=== PATIENT | male | born 1985 | race Hispanic/Latino ===

== ENCOUNTER 2021-06-12 10:06 | Emergency (ER) | payer SELFPAY ==
[~2021-06-12] VITALS: Ht 172.7 cm; Wt 95.3 kg
[2021-06-12 10:11] VITALS: BP 132/74
[2021-06-12] MEDS ORDERED: ACETAMINOPHEN 500 MG TABLET PO ONE (12:00)
[2021-06-12] MEDS ORDERED: 0.9%NACL 1000ML 1,000 ML IV ONE (12:00)
[2021-06-12 12:42] LABS: ABG BASE EXCESS 0.4 mmol/L (-2.0-3.0); ABG HCO3 19.6 mmol/L (21.0-28.0); ABG OXYGEN SATURATION 96.9 % (95.0-99.0); ABG PCO2 21 mmHg (35-48)
[2021-06-12 12:44] LABS: BASOPHILS % (AUTO) 0.3 % (0.0-5.0); EOSINOPHILS % (AUTO) 0.6 % (0.0-8.0); HEMATOCRIT 42.7 % (42-54); LYMPHOCYTES % (AUTO) 15.7 % (21.0-51.0); MEAN CORPUSCULAR HEMOGLOBIN 30.1 pg (27.0-33.0); MEAN CORPUSCULAR HGB CONC 35.4 g/dL (32.0-36.0); MEAN CORPUSCULAR VOLUME 85.2 fL (79-99); MONOCYTES % (AUTO) 4.3 % (3.0-13.0); NEUTROPHILS % (AUTO) 78.6 % (40.0-77.0); PLATELET COUNT (AUTO) 249 K/uL (130-400); RED BLOOD CELL COUNT(AUTO) 5.01 MIL/uL (4.50-6.20); RED CELL DISTRIBUTION WIDTH 12.1 % (11.0-15.5); WHITE BLOOD COUNT (AUTO) 11.1 K/uL (4.8-10.8)
[2021-06-12 12:57] VITALS: BP 126/72
[2021-06-12] MEDS ORDERED: ALBUTEROL INHALER 90MCG/INH IH PRN (13:00)
[2021-06-12 13:02] LABS: POTASSIUM 3.5 mmol/L (3.5-5.1)
[2021-06-12 13:06] LABS: ALBUMIN 3.2 g/dL (3.5-5.0); BILIRUBIN,TOTAL 0.6 mg/dL (0.2-1.0); TOTAL PROTEIN, SERUM 8.4 g/dL (6.0-8.3)
[2021-06-12 13:19] LABS: B-TYPE NATRIURETIC PEPTIDE 7 pg/mL (0-100)
[2021-06-12 13:20] LABS: CRP QUANTITATIVE 190.2 mg/L (0.00-9.0)
[2021-06-12] MEDS ORDERED: ALBUHFA IH (13:26)
[2021-06-12] MEDS ORDERED: ACET-2247 PO (13:26)
[2021-06-12] MEDS ORDERED: FLUT1DIS IH (13:26)
== END 2021-06-12 13:44 | disposition home or self-care (01) ==
LOC: EDH 10:06
DX: U07.1 COVID-19 (principal); J98.8 Other specified respiratory disorders; F41.9 Anxiety disorder, unspecified; Z79.51 Long term (current) use of inhaled steroids; Z79.899 Other long term (current) drug therapy
CPT/HCPCS: 36415; 36600; 71045; 80053; 82803; 83880; 84484; 85025; 85378; 86140; 87040 ×2; 87635; 87804 ×2; 93005; 96360; 99285; C9803; J7030

== ENCOUNTER 2024-02-11 21:46 | Emergency (ER) | payer BC, OTHER ==
[~2024-02-11 21:46] MED LIST: ACET-2247 PO; ALBUHFA IH; FLUT1DIS IH
[2024-02-11] MEDS: 0.9%NACL 1000ML 1,000 ML IV ONE (23:22)
[2024-02-11] MEDS: FAMOTIDINE 20MG VIAL IV ONE (23:23)
[2024-02-11] MEDS: DIAZEPAM 5 MG/ML 2 ML SYG IVP ONE (23:26)
[2024-02-11] MEDS: KETOROLAC 30MG VIAL (30MG/ML) IVP ONE (23:26)
[2024-02-11 23:32] LABS: BASOPHILS # (AUTO) 0.05 K/uL (0.00-0.20); BASOPHILS % (AUTO) 0.4 % (0.0-5.0); EOSINOPHILS % (AUTO) 5.1 % (0.0-8.0); HEMATOCRIT 41.4 % (42-54); IMMATURE GRANULOCYTE ABSOLUTE 0.07 K/uL (0-1); LYMPHOCYTES # (AUTO) 2.7 K/uL (1.0-4.8); LYMPHOCYTES % (AUTO) 22.9 % (21.0-51.0); MEAN CORPUSCULAR HEMOGLOBIN 30.6 pg (27.0-33.0); MEAN CORPUSCULAR HGB CONC 34.8 g/dL (32.0-36.0); MEAN CORPUSCULAR VOLUME 88.1 fL (79-99); MONOCYTES # (AUTO) 1.3 K/uL (0.1-1.0); MONOCYTES % (AUTO) 11.1 % (3.0-13.0); NEUTROPHILS # (AUTO) 7.1 K/uL (1.8-7.7); NEUTROPHILS % (AUTO) 59.9 % (40.0-77.0); PLATELET COUNT (AUTO) 382 K/uL (130-400); RED CELL DISTRIBUTION WIDTH 12.2 % (11.0-15.5); WHITE BLOOD COUNT (AUTO) 11.9 K/uL (4.8-10.8)
[2024-02-11 23:55] LABS: POTASSIUM 3.1 mmol/L (3.5-5.1)
[2024-02-11 23:59] LABS: ALBUMIN 3.1 g/dL (3.5-5.0); BILIRUBIN,TOTAL 1.5 mg/dL (0.2-1.0); TOTAL PROTEIN, SERUM 8.2 g/dL (6.0-8.3)
[2024-02-12] MEDS: POTASSIUM BICARB/CIT AC 25 MEQ TABLET.EFF PO ONE (00:45)
[2024-02-12 00:55] LABS: MAGNESIUM 1.7 mg/dL (1.80-2.40); THYROID STIMULATING HORMONE 2.44 uIU/mL (0.36-3.74)
[2024-02-12 01:13] VITALS: BP 137/87; PULSE 80; RESP 16; O2SAT 95
[2024-02-12] MEDS ORDERED: CYCL10TA16 PO (01:17)
[2024-02-12] MEDS ORDERED: MELO-106 PO (01:17)
[2024-02-12] MEDS: MORPHINE 2 MG SYG IVP ONE (01:24)
== END 2024-02-12 01:44 | disposition home or self-care (01) ==
LOC: EDH 21:46
DX: G89.29 Other chronic pain (principal); M54.50 Low back pain, unspecified; M19.90 Unspecified osteoarthritis, unspecified site; Z79.51 Long term (current) use of inhaled steroids
CPT/HCPCS: 99284; 96374; 96375 ×2; 96361; 84443; 82550; 83735; 80053; 85025; 36415; 76705; J3490; J7030; J3360; J1885; J2270